=== PATIENT | female | born 1940 | race Caucasian/White ===

== ENCOUNTER → 2024-04-14 09:30 | Outpatient (REF) | payer MEDICARE, OTHER, SELFPAY ==
[2024-04-14 09:54] VITALS: BMI 21.2
[2024-04-14 10:38] LABS: Hematocrit 36.4 % (37.0-47.0); Hemoglobin 12.3 g/dL (12.0-16.0); Mean Corp Hgb Conc. 33.8 g/dL (33.0-37.0); Mean Corpuscular Hgb 29.9 pg (27.0-31.0); Mean Corpuscular Volume 88.6 fL (81.0-99.0); Mean Platelet Volume 9.7 fL (7.4-10.4); Platelet Count 268 10^3/uL (130-400); Red Blood Cell Count 4.11 10^6/uL (4.20-5.40); Red Cell Dist. Width 12.1 % (11.5-14.5)
[2024-04-14 10:48] LABS: INR 1.02; PT 13.5 Sec (11.4-14.6)
[2024-04-14 10:49] LABS: APTT 30.5 Sec (23.4-35.0)
[2024-04-14 11:14] LABS: Glycohemoglobin (HgbA1c) 5.6 % (4.0-5.6)
[2024-04-14 11:52] LABS: ALT (SGPT) 25 U/L (0-35); AST (SGOT) 42 U/L (14-36); Albumin 4.3 g/dl (3.5-5.0); Alkaline Phosphatase 74 U/L (38-126); Blood Urea Nitrogen 17 mg/dl (7-17); Calcium 9.7 mg/dl (8.4-10.2); Carbon Dioxide 27 mmol/L (22-30); Chloride 103 mmol/L (98-107); Estimated Creatinine Clearance 49 ml/min; Glucose 92 mg/dl (70-99); Potassium 4.3 mmol/L (3.5-5.1); Sodium 139 mmol/L (135-145); Total Bilirubin 0.7 mg/dl (0.2-1.3); eGFR > 60.00
--- NOTE | 2024-04-16 09:32 | PTCARENOTE ---
Sonia @ Dr. Fermin office and Mary @ Dr. Borjas office notified of patients 04/14 abn CXR
== END ==
LOC: REG 09:30
PROVIDERS: ATTENDING PHYSICIAN Surgery; FAMILY PHYSICIAN Student in an Organized Health Care Education/Training Program; REFERRING PHYSICIAN Obstetrics & Gynecology
DX: N81.6 Rectocele (principal); N39.3 Stress incontinence (female) (male); Z01.818 Encounter for other preprocedural examination
CPT/HCPCS: 36415; 71046; 80053; 83036; 85027; 85610; 85730; 86850; 86900; 86901; 93005

== ENCOUNTER → 2024-07-14 10:26 | Outpatient (REF) | payer MEDICARE, OTHER, SELFPAY | LOC: HWRAD 10:26 | PROVIDERS: ATTENDING PHYSICIAN Internal Medicine Critical Care Medicine; FAMILY PHYSICIAN Student in an Organized Health Care Education/Training Program | DX: R09.89 Other specified symptoms and signs involving the circulatory and respiratory systems (principal); J84.9 Interstitial pulmonary disease, unspecified | CPT/HCPCS: 71250 ==

== ENCOUNTER → 2024-08-25 08:25 | Outpatient (REF) | payer MEDICARE, OTHER, SELFPAY ==
[2024-08-25 10:33] LABS: Blood Urea Nitrogen 20 mg/dl (7-17)
== END ==
LOC: HWLAB 08:25
PROVIDERS: ATTENDING PHYSICIAN Surgery; FAMILY PHYSICIAN Student in an Organized Health Care Education/Training Program
DX: K62.3 Rectal prolapse (principal)
CPT/HCPCS: 36415; 82565; 84520

== ENCOUNTER → 2024-08-31 13:58 | Outpatient (REF) | payer MEDICARE, OTHER, SELFPAY | LOC: HWRAD 13:58 | PROVIDERS: ATTENDING PHYSICIAN Surgery; FAMILY PHYSICIAN Student in an Organized Health Care Education/Training Program | DX: R10.32 Left lower quadrant pain (principal) | CPT/HCPCS: 74177; Q9967 ==

== ENCOUNTER 2024-09-14 06:30 | Day surgery (SDC) | payer MEDICARE, OTHER, SELFPAY | END 2024-09-14 12:54 | disposition home or self-care (01) | LOC: GI 06:30 | PROVIDERS: ATTENDING PHYSICIAN Surgery | DX: Z12.11 Encounter for screening for malignant neoplasm of colon (principal); D12.8 Benign neoplasm of rectum; K56.2 Volvulus; Q43.8 Other specified congenital malformations of intestine; Z86.0100 Personal history of colon polyps, unspecified | CPT/HCPCS: 45385; 88305 ==

== ENCOUNTER 2024-11-30 06:19 | Day surgery (SDC) | payer MEDICARE, OTHER, SELFPAY ==
[2024-11-30 08:13] VITALS: BMI 22.2
[2024-11-30 08:29] VITALS: BP 165/85
[2024-11-30 08:49] VITALS: BMI 22.2
[2024-11-30 10:55] VITALS: BP 147/86
[2024-11-30 11:00] VITALS: BP 124/74
[2024-11-30 11:15] VITALS: BP 139/80
[2024-11-30 11:20] VITALS: BP 142/74
== END 2024-11-30 11:45 | disposition home or self-care (01) ==
LOC: SDS 06:19
PROVIDERS: ATTENDING PHYSICIAN Internal Medicine Gastroenterology
DX: D12.0 Benign neoplasm of cecum (principal); Q43.8 Other specified congenital malformations of intestine; D12.8 Benign neoplasm of rectum; K64.0 First degree hemorrhoids
CPT/HCPCS: 45385; 88305

== ENCOUNTER → 2024-12-30 06:35 | Outpatient (REF) | payer MEDICARE, OTHER, SELFPAY ==
[2024-12-30 09:58] LABS: % Basophils 0.7 % (0-2); % Immature Granulocytes 0.2 % (0-0.5); % Monocytes 7.5 % (1.7-9.3); % Neutrophils 72.6 % (42.2-75.2); Absolute Eosinophils 0.1 10^3/uL (0-0.7); Absolute Monocytes 0.4 10^3/uL (0.1-0.6); Absolute Neutrophils 4.1 10^3/uL (1.4-6.5); Hematocrit 39.1 % (37.0-47.0); Hemoglobin 12.6 g/dL (12.0-16.0); Mean Corp Hgb Conc. 32.2 g/dL (33.0-37.0); Mean Corpuscular Hgb 29.5 pg (27.0-31.0); Mean Corpuscular Volume 91.6 fL (81.0-99.0); Mean Platelet Volume 10.5 fL (7.4-10.4); Nucleated Red Blood Cells % 0 %; Platelet Count 226 10^3/uL (130-400); Red Blood Cell Count 4.27 10^6/uL (4.20-5.40); Red Cell Dist. Width 12.3 % (11.5-14.5); White Blood Cell Count 5.6 10^3/uL (4.8-10.8)
[2024-12-30 10:17] LABS: ALT (SGPT) 20 U/L (0-35); AST (SGOT) 30 U/L (14-36); Albumin 4.2 g/dl (3.5-5.0); Alkaline Phosphatase 66 U/L (38-126); Blood Urea Nitrogen 24 mg/dl (7-17); Calcium 9.7 mg/dl (8.4-10.2); Carbon Dioxide 30 mmol/L (22-30); Chloride 103 mmol/L (98-107); Glucose 98 mg/dl (70-99); HDL Cholesterol 73 mg/dl; LDL Cholesterol, Calculated 84 mg/dl; Sodium 138 mmol/L (135-145); Total Bilirubin 0.8 mg/dl (0.2-1.3); Total Cholesterol 176 mg/dl (50-199); Triglyceride 99 mg/dl (10-149); Very Low Density Lipoprotein 19 mg/dl (0-30); eGFR > 60.00
[2024-12-30 10:26] LABS: Free T4 0.88 ng/dl (0.78-2.19)
[2024-12-30 10:40] LABS: TSH 1.06 uIU/ml (0.47-4.68)
[2024-12-30 11:53] LABS: Potassium 4.4 mmol/L (3.5-5.1)
== END ==
LOC: HWLAB 06:35
PROVIDERS: ATTENDING PHYSICIAN Physician Assistant
DX: E03.9 Hypothyroidism, unspecified (principal); K62.3 Rectal prolapse; E78.5 Hyperlipidemia, unspecified; K59.09 Other constipation; R79.89 Other specified abnormal findings of blood chemistry; R19.5 Other fecal abnormalities
CPT/HCPCS: 36415; 80053; 80061; 84439; 84443; 85025

== ENCOUNTER 2025-01-18 06:09 | Inpatient (IN) | payer MEDICARE, OTHER, SELFPAY ==
[2025-01-06 11:21] LABS: Hemoglobin 12.7 g/dL (12.0-16.0); Mean Corp Hgb Conc. 32.6 g/dL (33.0-37.0); Mean Corpuscular Hgb 29.7 pg (27.0-31.0); Mean Corpuscular Volume 91.1 fL (81.0-99.0); Mean Platelet Volume 10.1 fL (7.4-10.4); Platelet Count 245 10^3/uL (130-400); Red Blood Cell Count 4.28 10^6/uL (4.20-5.40); Red Cell Dist. Width 12.4 % (11.5-14.5); White Blood Cell Count 6.4 10^3/uL (4.8-10.8)
[2025-01-06 11:31] LABS: INR 0.91; PT 12.8 Sec (11.4-14.6)
[2025-01-06 11:32] LABS: APTT 29.8 Sec (23.4-35.0)
[2025-01-06 12:12] LABS: ALT (SGPT) 21 U/L (0-35); AST (SGOT) 30 U/L (14-36); Albumin 4.1 g/dl (3.5-5.0); Alkaline Phosphatase 67 U/L (38-126); Blood Urea Nitrogen 18 mg/dl (7-17); Calcium 9.7 mg/dl (8.4-10.2); Carbon Dioxide 31 mmol/L (22-30); Chloride 100 mmol/L (98-107); Glucose 88 mg/dl (70-99); Potassium 4.6 mmol/L (3.5-5.1); Sodium 138 mmol/L (135-145); Total Bilirubin 0.7 mg/dl (0.2-1.3); Total Protein 6.9 g/dl (6.3-8.2); eGFR > 60.00
[2025-01-06 13:41] VITALS: BMI 21.8
[2025-01-18] VITALS (20 sets, daily range): BP systolic 93–162; BP diastolic 53–90; BMI 21.8
[2025-01-18] MEDS: TYLENOL 1000 MG PO ×3 (07:10→23:26)
[2025-01-18] MEDS: Pyridium 200 MG PO (07:10)
[2025-01-18] MEDS: NORMOSOL-R/PLASMALYTE-A 1000 IV ×2 (07:10→18:54)
[2025-01-18] MEDS: HEPARIN 5000 UNITS SC (07:11)
[2025-01-18] MEDS: CELEBREX 200 MG PO (07:11)
[2025-01-18] MEDS: ENTEREG 12 MG PO (07:11)
--- NOTE | 2025-01-18 12:36 | W.IMMPOSTOP ---
Addendum entered and electronically signed by Chris Mark MD 01/18/25 16:23:
called daughter around 1:45pm, went to voicemail; called again just now and updated her
Original Note:
Surgical Immed Post Op Note
-
Primary Surgeon: Chris Mark MD
Assisting Surgeon: YARELI Jack
Pre-op Diagnosis: Rectal prolapse, urinary incontinence, rectocele
Post-op Diagnosis: Rectal prolapse, urinary incontinence, rectocele
Procedure Performed: Robotic posterior rectopexy, lysis of adhesions, flexible sigmoidoscopy, laparoscopic TAP block; urethral sling and posterior colporrhaphy with perineoplasty by Dr. Veronica
Anesthesia Type: General
Specimen / Cultures: None
Estimated Blood Loss: 25 mL
Complications: None
Operative Findings: Loop of small bowel adherent to the lower anterior abdominal wall, freed with sharp lysis of adhesions; significant adhesions from the sigmoid colon to the prior sacrocolpopexy with mesh that was freed with meticulous dissection;
cecum, appendix and terminal ileum had also fallen into the pelvis, but this retracted easily without significant adhesions; redundant sigmoid curled within the pelvis posterior to the prior sacrocolpopexy; adhesions were freed and the rectum was
retracted out of the pelvis; the sacrocolpopexy with mesh was intact; entered the presacral space and dissected this down to the pelvic floor posteriorly; divided the right lateral stalk of the rectum to just distal to the mid rectum; secured the
right lateral ligament to the base of the mesh with 0 Prolene stitches; rectum felt to still be somewhat lax within the pelvis; placed on additional tension and placed additional 0 Prolene stitches; flexible sigmoidoscopy performed to confirm no
kinking of the bowel; closed the peritoneum with 3 oh V-Loc running stitches
--- NOTE | 2025-01-18 12:42 | OR.RPT ---
Operative Report
Operative Report
DATE OF OPERATION: 01/18/2025
SURGEON: Chris Mark MD
PREOPERATIVE DIAGNOSIS: Rectal prolapse
POSTOPERATIVE DIAGNOSIS: Rectal prolapse
OPERATION: Robotic posterior suture rectopexy, adhesiolysis greater than 1 hr, repair of serosal injury, flexible sigmoidoscopy, laparoscopic TAP block; urethral sling and posterior colporrhaphy with perineoplasty by Dr. Veronica
ASSISTANTS:
1. Steven Stark MD, performed flexible sigmoidoscopy
2. YARELI Jack
ANESTHESIA: General
ESTIMATED BLOOD LOSS: 25 mL
IVF: [amount]
URINE OUTPUT: [amount]
FINDINGS:
1. Small bowel adhesions to the lower anterior abdominal wall as well as to the prior mesh sacrocolpopexy; encountered a likely serosal injury, which was repaired with Lembert stitches
2. Significantly redundant sigmoid colon
3. After suture rectopexy, flexible sigmoidoscopy was performed confirming no full-thickness stitches and no severe kinking
SPECIMENS:
1. None
DRAINS: None
COMPLICATIONS: No immediate complications.
INDICATIONS: The patient is an 84-year-old female who presented to my office with a symptomatic rectal prolapse extending about 10 to 15 cm when fully prolapsed. This was significantly affecting her quality of life. She had a prior mesh
sacrocolpopexy in 2018. I explained that this may complicate access to the pelvis and therefore the ultimate procedure would depend on the intraoperative findings. I explained that my plan would be to perform a posterior suture rectopexy, but
depending on the intraoperative findings, may involve a resection rectopexy, ventral mesh rectopexy or Altemeier procedure. The operation was discussed with the patient in detail, including the risks, benefits and alternatives. Risks described
included, but not limited to, bleeding, infection, damage to nearby structures (i.e.- ureter, bowel, solid organs), incisional hernia, conversion to open, recurrence of prolapse, complications with mesh if used (ie- mesh infection, mesh erosion),
conversion to another type of rectal prolapse repair (ie- Altemeier, ventral mesh rectopexy), and anesthetic risks. The patient understood and agreed to proceed.
PROCEDURE IN DETAIL: The patient was taken to the operating room and placed on the operating table in supine position. Sequential compression devices were placed bilaterally. General anesthesia was induced and the patient was intubated without
complication. The patient was placed in lithotomy position with both arms tucked. Petersen catheter was placed with sterile technique. The abdomen was shaved, prepped and draped in a sterile fashion. A time-out was performed verifying the correct
patient, procedure, operative site, positioning, and special equipment. Anesthesia placed an orogastric tube. Preoperative antibiotics were given. A marking pen was used to morro out the midline.
An 8 mm incision at Saeed's point was made with an 11 blade scalpel. A Veress needle was used to gain abdominal access. After 3 clicks, the insufflation was connected to the Veress needle and the opening pressure was noted to be less than 8 mmHg.
The abdomen was insufflated to a pressure of 12 mmHg. An 8 mm robotic trocar was inserted. The robotic camera was advanced and intra-abdominal placement was confirmed. The abdomen was examined. No injuries were noted from port entry or from the
Veress needle. The remaining three 8mm robotic ports were placed under direct visualization in a diagonal fashion from Saeed's point to the right lower quadrant, as well as an 8mm assist port in the right lateral mid-abdomen, taking care to avoid
injury to the right epigastric vessels. The left upper quadrant port was changed to the air seal port. The robot was docked from the patient's left side. From the RLQ to Saeed's point, the instruments introduced were the scissors, camera, bipolar
grasper and tip-up grasper, respectively.
The small bowel was retracted out of the pelvis and towards the right upper quadrant. There was 1 loop of ileum that was adherent to the lower anterior abdominal wall. This was taken down meticulously with sharp dissection. Upon freeing this,
there was an area that was oozing some blood and difficult to discern if there was a true serosal injury. Therefore, I placed 2 Lembert stitches to imbricate this area. This was about 30 to 40 cm proximal from the ileocecal valve. The cecum and
terminal ileum were laying within the pelvis posterior to the mesh sacrocolpopexy. There were adhesions from the mesh to the sigmoid colon and mesentery, as well as adhesions to the small bowel mesentery. These were freed with meticulous sharp
dissection without any injury to the bowel. After these adhesions were freed, the cecum and terminal ileum were retracted from the pelvis without significant adhesions. The sigmoid colon did retract away from the pelvis, but there continued to be
additional adhesions from the posterior aspect of the sacrocolpopexy mesh to the rectosigmoid. These adhesions were freed up with meticulous sharp dissection. Eventually, the rectum was able to be completely retracted without any adhesions to the
mesh sacrocolpopexy. At this point, Dr. Veronica was called in to evaluate and he felt that the mesh sacrocolpopexy was intact and without any concerns. I discussed the possibility of freeing more surface area of the sacral promontory as opposed to
placing my tacking stitches at the base of the mesh. Dr. Stark and Dr. Veronica felt that the risk of cleaning up more sacral promontory and weakening the fixation of the mesh was not worth the benefit and agreed with placing my fixation stitches
to the base of the mesh. Lastly, I felt that performing a ventral mesh rectopexy in this setting would be much more difficult due to the current mesh, increasing incidental injury to the anterior rectum or vagina. Therefore, I elected to proceed
with posterior suture rectopexy.
I elevated the rectosigmoid to expose the peritoneum overlying the presacral space. I easily identified bilateral ureters due to the minimal retroperitoneal fat. I kept the ureters safe from my dissection. I scored the peritoneum overlying the
sacral promontory and entered the presacral space. I also identified the superior rectal artery and kept this anterior to my dissection plane. I mobilized this space into the pelvis, making sure to avoid injury to this presacral veins and
hypogastric nerves. I scored the peritoneum coming up the right aspect of the pelvis and anteriorly through the anterior reflection. I continued my posterior dissection to the pelvic floor and confirmed complete posterior mobilization by
performing a BRIGIDA. I took down the right lateral stalk to just distal rectum, keeping the right ureter safe. I mobilized a little into the rectovaginal septum, but not more than 1 to 2 cm. I pulled up the rectum and this flattened out the pouch of
Jimi nicely. I placed three 0 Prolene fixation sutures in the right lateral rectal ligament to the base of the mesh, taking care to avoid biting any colon wall. Dr. Stark performed a flexible sigmoidoscopy at this point in order to ensure no
severe kinking that may lead to an obstruction. Overton up the rectum, we identified an area of laxity, concerning that the fixation was not taut enough, leaving a high risk of recurrent prolapse. Therefore, I pulled up the rectum and placed 3
additional fixation stitches of 0 Prolene in the right lateral rectal ligament. Now, the rectum was taut but not under undue tension. Dr. Stark performed another flexible sigmoidoscopy and there was no laxity identified throughout the rectum.
Additionally, he passed the area of the fixation stitches and confirmed that there were no full-thickness bites through the rectal wall and there was no severe kinking, precluding risk of obstruction.
I closed the peritoneum around the rectum with a running 3-0 V-lock stitch up to the sacral promontory. Hemostasis was checked and assured. The robotic instruments were removed and the robot was undocked. Using laparoscopic visualization, a TAP
block was performed using a total of 30 mL of 0.25% Marcaine with epinephrine mixed with dexamethasone and injecting in the transverse abdominis plane bilaterally. The remaining ports were removed under direct visualization and no bleeding was
noted. The remaining 30 cc of 0.25% Marcaine with epinephrine mixed with dexamethasone were injected around the incisions. The incisions were then closed with running subcuticular 4-0 Monocryl and dressed with Dermabond.
Dr. Veronica performed his portion of the surgery at this time, which will be dictated separately. Once completed, the patient was awoken and extubated without complication. All needle, sponge and instrument counts were reported as correct. The
patient tolerated the procedure well and was transferred to the recovery room in stable condition with the petersen in place.
Of note, Steven Stark MD, technical services assistant, was necessary to perform the flexible sigmoidoscopy. I was present for the entire duration of the case.
DICTATED BY: Chris Mark MD
--- NOTE | 2025-01-18 15:51 | SUR.PHASEI ---
patient sedate with airway for some time in pacu. Daughter updated on condition and waiting for room. upset - wants to speak with physician - Dr Veronica and Dr Mark TT and updated. sleeps now - arouses to name, comfortable and back to sleep
--- NOTE | 2025-01-18 18:10 | PTCARENOTE ---
Pt received from the PACU via bed. Transport was w/o incident. Pt is AAOx3, HRR, lungs are clear, resp. easy. VSS, Pt is afebrile. Pt denies pain or nausea at this time. 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 Pt instructed
on plan of care. Pt verbalized understanding of instructions. Call delgadillo is within reach.
[2025-01-18] MEDS: TORADOL 10 MG IV ×2 (18:52→23:26)
[2025-01-19] VITALS (7 sets, daily range): BP systolic 103–152; BP diastolic 48–80; PULSE 71; O2SAT 98; BMI 21.5
--- NOTE | 2025-01-19 04:30 | PTCARENOTE ---
2140pt had small soft loose BM with some liquid, two quarter size blood stains noted on pad.
[2025-01-19] MEDS: TYLENOL 1000 MG PO ×3 (05:56→17:57)
[2025-01-19] MEDS: TORADOL 10 MG IV ×3 (05:56→17:17)
--- NOTE | 2025-01-19 07:17 | W.PN.GYN ---
Today's Communication / Plan
-
remove petersen catheter
Physician Note
-
Assessment and Plan:
84 yo woman admitted POD 1 s/p Robotic rectopexy with Dr. Mark in colorectal surgery and retropubic midurethral sling, cystoscopy, posterior colporrhaphy, perineoplasty: doing well on postoperative day 1.
Postoperative care
-Diet recommendations per colorectal surgery
-Remove petersen catheter today
-Measure PVR after void, if PVR > 150 mL then replace petersen catheter.
-Vaginal bleeding: normal bleeding, no acute bleeding, continue pads
-CBC pending this morning
Subjective:
No acute complaints, petersen in place, denies vaginal pain.
Intake and Output
01/17/25 01/18/25 01/19/25 01/20/25
06:59 06:59 06:59 06:59
Intake Total 980 / 980
Output Total 2500 / 2500
Balance -1520 / -1520
Intake:
Oral fluids 280 / 280
IV fluids (Total) 700 / 700
normosol 100 / 100
Output:
Urine, Petersen 2500 / 2500
Vital Signs
Temp Pulse Resp BP Pulse Ox
97.8 F 64 16 109/55 98
01/19/25 03:00 01/19/25 03:00 01/19/25 03:00 01/19/25 03:00 01/19/25 03:00
Objective:
Exam:
Abdomen: soft, nontender, no suprapubic tenderness or hematoma
: minimal vaginal bleeding, no packing
[2025-01-19 07:39] LABS: % Immature Granulocytes 0.5 % (0-0.5); % Lymphocytes 5.9 % (20.5-51.1); % Monocytes 6.7 % (1.7-9.3); % Neutrophils 86.9 % (42.2-75.2); Absolute Lymphocytes 0.5 10^3/uL (1.2-3.4); Absolute Monocytes 0.6 10^3/uL (0.1-0.6); Absolute Neutrophils 7.6 10^3/uL (1.4-6.5); Hemoglobin 10.6 g/dL (12.0-16.0); Mean Corp Hgb Conc. 34.2 g/dL (33.0-37.0); Mean Corpuscular Hgb 30.2 pg (27.0-31.0); Mean Corpuscular Volume 88.3 fL (81.0-99.0); Nucleated Red Blood Cells % 0 %; Platelet Count 217 10^3/uL (130-400); Red Blood Cell Count 3.51 10^6/uL (4.20-5.40); Red Cell Dist. Width 12.3 % (11.5-14.5); White Blood Cell Count 8.8 10^3/uL (4.8-10.8)
[2025-01-19] MEDS: ENTEREG 12 MG PO ×2 (07:47→19:16)
[2025-01-19 08:13] LABS: Blood Urea Nitrogen 9 mg/dl (7-17); Calcium 8.4 mg/dl (8.4-10.2); Carbon Dioxide 29 mmol/L (22-30); Chloride 100 mmol/L (98-107); Estimated Creatinine Clearance 55 ml/min; Glucose 129 mg/dl (70-99); Potassium 3.7 mmol/L (3.5-5.1); Sodium 135 mmol/L (135-145); eGFR > 60.00
--- NOTE | 2025-01-19 10:39 | PTOTSP ---
Pt is able to get OOB and ambulate in hallway without need for any assistive devices with steady gait and is able to climb steps with railing without difficulty. No skilled PT needs were identified. Will sign off.
--- NOTE | 2025-01-19 10:51 | CM ---
Initial assessment completed
Reports she lives with her son in a 2 story home; [address], 18 steps to 2nd [address]
Independent at baseline, drives. Daughter will be available to assit
DME - none
SNF/HH - no past hx
Has ride at d/c
PCP - Lakeshia Hernandez
Pharm - [facility]
PT recs - no needs
Plan - anticipate home no needs
--- NOTE | 2025-01-19 11:15 | W.PN.CRS1 ---
Today's Communication / Plan
-
Regular diet
Lovenox
Assessment/Plan
-
POD#1 Robotic posterior rectopexy, lysis of adhesions, flexible sigmoidoscopy, laparoscopic TAP block; urethral sling and posterior colporrhaphy with perineoplasty by Dr. Veronica
WBC 8.8, hemoglobin 10.7
Vitals normal
-Continue regular diet. DC IV fluids when tolerating p.o.
-Out of bed as tolerated
-Discontinue Pisano
-Add Lovenox for DVT prophylaxis. Teds and SCDs in place.
-Trend labs.
-Pain control: Tylenol and Toradol standing, Dilaudid and Ultram as needed.
-Dispo: Home with no needs. Anticipate another day.
Subjective Data
Procedure
01/18/2025- Robotic posterior rectopexy, lysis of adhesions, flexible sigmoidoscopy, laparoscopic TAP block; urethral sling and posterior colporrhaphy with perineoplasty by Dr. Veronica
Subjective Data
Date of Service: January 19, 2025
Patient states she is having very loose stools with incontinence. She denies nausea or vomiting. She does not have any pain.
Objective Data
-
Vital Signs
Temp Pulse Resp BP Pulse Ox
98.0 F 61 16 109/63 96
01/19/25 07:06 01/19/25 07:06 01/19/25 07:06 01/19/25 07:06 01/19/25 07:06
Intake & Output
01/18/25 01/19/25 01/20/25
06:59 06:59 06:59
Intake Total 980 / 980 120 / 120
Output Total 2500 / 2500
Balance -1520 / -1520 120 / 120
Intake:
Oral fluids 280 / 280 120 / 120
IV fluids (Total) 700 / 700
normosol 100 / 100
Output:
Urine, Pisano 2500 / 2500
Other:
Number of approximated MODERATE 1
amounts of urine
Lab Results
01/19/25 06:32
01/19/25 06:32
Physical Exam
-
General: No Acute Distress and AOx3
Abdomen: Soft, Non Distended and Non Tender
Skin: Warm and Dry
Incision: Clear, Dry, Intact
[2025-01-19] MEDS: NORMOSOL-R/PLASMALYTE-A IV (11:24)
[2025-01-19] MEDS: LOVENOX 40 MG SC (17:17)
[2025-01-19] MEDS: TORADOL IV (23:43)
[2025-01-19] MEDS: TYLENOL PO (23:44)
[2025-01-20 03:26] VITALS: BP 121/69
[2025-01-20 06:00] VITALS: BMI 21.7
[2025-01-20] MEDS: TORADOL IV (06:05)
[2025-01-20] MEDS: TYLENOL PO (06:05)
[2025-01-20 07:00] VITALS: BP 147/76
[2025-01-20 07:24] LABS: % Basophils 0.4 % (0-2); % Eosinophils 1.5 % (0-6); % Immature Granulocytes 0.3 % (0-0.5); % Lymphocytes 17.8 % (20.5-51.1); % Monocytes 5.8 % (1.7-9.3); % Neutrophils 74.2 % (42.2-75.2); Absolute Eosinophils 0.1 10^3/uL (0-0.7); Absolute Lymphocytes 1.4 10^3/uL (1.2-3.4); Absolute Monocytes 0.5 10^3/uL (0.1-0.6); Absolute Neutrophils 5.9 10^3/uL (1.4-6.5); Hematocrit 29.3 % (37.0-47.0); Hemoglobin 9.9 g/dL (12.0-16.0); Mean Corp Hgb Conc. 33.8 g/dL (33.0-37.0); Mean Corpuscular Hgb 30.6 pg (27.0-31.0); Mean Corpuscular Volume 90.4 fL (81.0-99.0); Mean Platelet Volume 10.1 fL (7.4-10.4); Nucleated Red Blood Cells % 0 %; Platelet Count 206 10^3/uL (130-400); Red Blood Cell Count 3.24 10^6/uL (4.20-5.40); Red Cell Dist. Width 12.8 % (11.5-14.5); White Blood Cell Count 7.9 10^3/uL (4.8-10.8)
[2025-01-20] MEDS: TYLENOL 1000 MG PO (08:05)
[2025-01-20] MEDS: TORADOL 10 MG IV (08:06)
[2025-01-20] MEDS: ENTEREG 12 MG PO (08:07)
--- NOTE | 2025-01-20 09:24 | W.PN.CRS1 ---
Addendum entered and electronically signed by Chris Mark MD 01/21/25 11:26:
For CDI clarification:
Drop in Hb likely due to acute blood loss anemia and hemodilution, not clinically significant
Original Note:
Today's Communication / Plan
-
as below
Assessment/Plan
-
84-year-old female with PMH of hypothyroidism, HLD, OA and rectal prolapse, presented for elective surgery
POD 2 robotic suture rectopexy; urethral sling and posterior colporrhaphy by Dr. Veronica
AFVSS
WBC 7.9 from 8.8, Hb 9.9 from 10.6
� Continue regular diet
� Continue Tylenol, Toradol, tramadol, Dilaudid as needed; will d/c entereg
� Cont Lovenox for DVT PPx
� OOB/IS/ambulate 3 times daily
� Appreciate urogyn
Dispo - ok for d/c today
Subjective Data
Procedure
01/18/2025- Robotic posterior rectopexy, lysis of adhesions, flexible sigmoidoscopy, laparoscopic TAP block; urethral sling and posterior colporrhaphy with perineoplasty by Dr. Veronica
Subjective Data
Date of Service: January 20, 2025
No overnight events. Fecal incontinence has improved, but liquid stool remains.
Pain controlled.
Denies nausea/vomiting. Tolerating diet.
+flatus +BMs +voiding
Pt is OOB.
Objective Data
-
Vital Signs
Temp Pulse Resp BP Pulse Ox
98.3 F 76 16 147/76 95
01/20/25 07:00 01/20/25 07:00 01/20/25 07:00 01/20/25 07:00 01/20/25 07:00
Intake & Output
01/19/25 01/20/25 01/21/25
06:59 06:59 06:59
Intake Total 980 / 980 1320 / 1320
Output Total 2500 / 2500
Balance -1520 / -1520 1320 / 1320
Intake:
Oral fluids 280 / 280 1320 / 1320
IV fluids (Total) 700 / 700
normosol 100 / 100
Output:
Urine, Pisano 2500 / 2500
Other:
Number of approximated MODERATE 2
amounts of urine
Lab Results
01/20/25 06:38
01/19/25 06:32
Physical Exam
-
General: No Acute Distress and AOx3
HEENT: Grossly Normal
Abdomen: Soft, Non Distended, Tender (Appropriately tender near incisions), No Guarding and No Rebound
Skin: Warm and Dry
Wound: No Signs of Infection, Dressing in Place (Dermabond) and No Skin Erythema (No blanching erythema, some mild nonblanching erythema/ecchymosis near right sided port incisions)
[2025-01-20] MEDS: SYNTHROID 100 MCG PO (09:59)
--- NOTE | 2025-01-20 09:59 | PN.CDI ---
CDI
- -
CDI:
Physician Documentation Request
Admit Date: 01/18/25 06:09
Dear Doctor Jas,
01/18 Patient underwent Robotic posterior rectopexy, lysis of adhesions, flexible sigmoidoscopy, laparoscopic TAP block; urethral sling and posterior colporrhaphy with perineoplasty
Recent H/H results:
Laboratory Tests
01/06/25 01/19/25 01/20/25
09:05 06:32 06:38
Hgb 12.7 10.6 L 9.9 L
Hct 39.0 31.0 L 29.3 L
Could you please provide a diagnosis that supports the above lab abnormalities and additional evaluation/ monitoring:
Acute blood loss anemia
Anemia - other - please specify
Abnormal lab value clinically insignificant
Other
Use of terms such as suspected, likely, concern for, or probable (associated with a specific diagnosis that is being evaluated, monitored, or treated as if it exists) are acceptable and can be coded in the inpatient setting, when documented at the
time of discharge.
Thank you,
Kelly Padilla RN, BSN
CDI Specialist
tiger text
Please use your independent medical judgment in providing your response.
--- NOTE | 2025-01-20 10:43 | W.DS.TRANS ---
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
-
Discharge Instructions:
Sleep Apnea Risk Low
Discharge Diagnosis/Procedures Robotic posterior rectopexy, lysis of adhesions,
flexible sigmoidoscopy, laparoscopic TAP block;
urethral sling and posterior colporrhaphy with
perineoplasty
Diet Regular
Activity No strenuous activity
Additional Activity No no lifting over 10 pounds (gallon of milk)
Driving Restrictions No driving for 1 week
Bathing Restrictions OK to Shower
Wound Care Allow glue to naturally fall off. Do not pick
at incisions.
Instructions:
Stand-Alone Forms:
Changes to Home Medications: No
Discharge Medications:
DC Medications w/original date entered in [facility]
calcium carbonate 600 mg PO HS Supplement 02/18/18
cholecalciferol (vitamin D3) 25 mcg (1,000 unit) capsule (Vitamin D3) 1,000 unit PO HS Supplement 02/18/18
multivitamin 1 ea PO HS Supplement 02/18/18
simvastatin 40 mg tablet 40 mg PO HS High Cholesterol 02/18/18
levothyroxine 100 mcg tablet 100 mcg PO DAILY Thyroid 04/13/24
ascorbic acid (vitamin C) 500 mg tablet (Vitamin C) 500 mg PO DAILY Supplement 01/11/25
Home Medication Changes
Pending Results: No
[2025-01-20 11:00] VITALS: BP 140/83
--- NOTE | 2025-01-20 11:32 | CM ---
Discharge today
Has ride
Reviewed IMM
Plan - home no needs
--- NOTE | 2025-01-20 14:44 | PN.CDI ---
CDI
- -
CDI:
Physician Documentation Request
Admit Date: 01/18/25 06:09
Dear Erika Wood,
01/18 Patient underwent Robotic posterior rectopexy, lysis of adhesions, flexible sigmoidoscopy, laparoscopic TAP block; urethral sling and posterior colporrhaphy with perineoplasty
Recent H/H results:
Laboratory Tests
01/06/25 01/19/25 01/20/25
09:05 06:32 06:38
Hgb 12.7 10.6 L 9.9 L
Hct 39.0 31.0 L 29.3 L
Could you please provide a diagnosis that supports the above lab abnormalities and additional evaluation/ monitoring:
Acute blood loss anemia
Anemia - other - please specify
Abnormal lab value clinically insignificant
Other
Use of terms such as suspected, likely, concern for, or probable (associated with a specific diagnosis that is being evaluated, monitored, or treated as if it exists) are acceptable and can be coded in the inpatient setting, when documented at the
time of discharge.
Thank you,
Kelly Padilla RN, BSN
CDI Specialist
tiger text
Please use your independent medical judgment in providing your response.
== END 2025-01-20 13:56 | disposition home or self-care (01) | DRG 330 ==
LOC: 2 SOUTH 06:09
PROVIDERS: Obstetrics & Gynecology; Physician Assistant; ADMITTING PHYSICIAN Surgery; FAMILY PHYSICIAN Student in an Organized Health Care Education/Training Program
PROC: 0DN84ZZ Release Small Intestine, Percutaneous Endoscopic Approach (ICD-10-PCS; 2025-01-18)
PROC: 0DSP4ZZ Reposition Rectum, Percutaneous Endoscopic Approach (ICD-10-PCS; 2025-01-18)
PROC: 0DNN4ZZ Release Sigmoid Colon, Percutaneous Endoscopic Approach (ICD-10-PCS; 2025-01-18)
PROC: 0JQC0ZZ Repair Pelvic Region Subcutaneous Tissue and Fascia, Open Approach (ICD-10-PCS; 2025-01-18)
PROC: 0TSD0ZZ Reposition Urethra, Open Approach (ICD-10-PCS; 2025-01-18)
PROC: 8E0W4CZ Robotic Assisted Procedure of Trunk Region, Percutaneous Endoscopic Approach (ICD-10-PCS; 2025-01-18)
PROC: 0DNV4ZZ Release Mesentery, Percutaneous Endoscopic Approach (ICD-10-PCS; 2025-01-18)
PROC: 0DQB4ZZ Repair Ileum, Percutaneous Endoscopic Approach (ICD-10-PCS; 2025-01-18)
PROC: 0DJD8ZZ Inspection of Lower Intestinal Tract, Via Natural or Artificial Opening Endoscopic (ICD-10-PCS; 2025-01-18)
DX: K62.3 Rectal prolapse (principal); K91.71 Accidental puncture and laceration of a digestive system organ or structure during a digestive system procedure; Q43.8 Other specified congenital malformations of intestine; N81.6 Rectocele; N39.3 Stress incontinence (female) (male); Z90.710 Acquired absence of both cervix and uterus; K66.0 Peritoneal adhesions (postprocedural) (postinfection); N36.41 Hypermobility of urethra; Y83.8 Other surgical procedures as the cause of abnormal reaction of the patient, or of later complication, without mention of misadventure at the time of the procedure
CPT/HCPCS: 36415; 71046; 80048; 80053; 83735; 85025; 85027; 85610; 85730; 86850; 86900; 86901; 93005; 97162; C1713; C1771